=== PATIENT | female | born 1950 | race Caucasian/White ===

== ENCOUNTER → 2020-08-03 | Outpatient (CLI) | payer MEDICARE, BC ==
[~2020-08-03] MED LIST: ASCO100T4 PO; ASPI-630 PO; BUPIVACAINE MPF 0.25% 30 ML VIAL. ONE; CALC500T54 PO; FEXO180T81 PO; IOHEXOL 180 MG/ML 10 ML VIAL. ONE; LACT1CAP19 PO; LEVO175T5 PO; LOSA-73 PO; MULT1CAP15 PO; OMEG1CAP43 PO; RABE20TA26 PO; TEMA30CA PO; Vitamin D3; methylPREDNISolone ACETATE 80 MG/ML VIAL. ONE
--- NOTE | 2020-08-03 13:26 | PDOC2 ---
INITIAL PAIN CONSULT DATE OF SERVICE: DOS: DATE: 08/03/20 TIME: 13:17 CHIEF COMPLAINT: Chief Complaint: Low back and left lower extremity pain HISTORY OF PRESENT ILLNESS: 70-year-old female presents with history of pain for about 3 months without any specific injury or accident that she is aware of, with pain in the low back left side of the posterior hip into the posterior thigh and calf and into the heel on the left side as well as the plantar surface of the foot. Patient reports it is worse with walking ,standing ,changing positions from standing to sitting and vice versa. Patient describes pain is constant sharp stabbing at times dull and aching in the low back rating the posterior gluteus posterior thigh and some in the heel of the foot on the left side as well. Patient reports awakens her from sleep about 2-3 times a night. Patient reports it does not affect her bowel or bladder control without any incontinence but does affect her ability to walk occasionally but not use any assistive devices to ambulate. Patient is tried ph ysical therapy chiropractic treatment with exercise which she is doing currently as well as acupuncture and dry needling all which were temporarily helpful but not long-term. Patient taking ibuprofen which helps to some extent as well but only mildly. Patient rates her disability rating 0-10 10 being the worst as a 7 with family home responsibilities for with recreation 5 with social activity 6 with occupation and sexual behavior 3 with self-care and life support activities. Patient reports no loss of motor function but significant fatigability of the left lower extremity with walking even with standing for more than about 10 to 15 minutes. PAST MEDICAL HISTORY: PMH: Hearing loss, hypertension, arthritis, irritable bowel syndrome, gastroesophageal reflux, recurrent urinary tract infections. PREVIOUS SURGERIES: Past Surgical Hx: Bladder sling, tonsillectomy adenoidectomy, ORIF humerus, bilateral knee replacement right side April 13 and left side July 16, 2020, tubal ligation FAMILY HISTORY: Family Hx: Cancer, heart disease, strokes SOCIAL HISTORY: Social Hx: Patient drinks 1 glass of wine only very rarely maybe once a month does not smoke does not use any illegal illicit or recreational drugs is lives with her spouse lives locally in [facility] reports she is currently retired. REVIEW OF SYSTEMS: ROS: Positive for those items mentioned in history of present illness, all systems are reviewed, otherwise negative, is complete full and well-documented on [facility]'s chart PHYSICAL EXAM: VS: Blood pressure is 146/84 pulse 69 respiration 16 temperature 97.9 F height is 5 feet 4 inches weight 217 pounds PE: PHYSICAL EXAMINATION: GENERAL: The patient is awake, alert, oriented, appropriate, very pleasant demeanor HEENT: Shows normocephalic, atraumatic. Extraocular movements are intact and symmetrical. Oral cavity: Mucous membranes moist and pink. NECK: Shows anterior throat supple without palpable lymphadenopathy noted. Swallow reflex symmetrical. CHEST: Shows normal on inspection. Breath sounds are clear bilaterally, no rales rhonchi or wheezes auscultated. HEART: Shows S1, S2 clear. No murmurs auscultated. ABDOMEN: Soft, nontender, nondistended. No palpable organomegaly is noted. No rebound or guarding demonstrated. BACK: Shows spine grossly in the midline. Normal-appearing cervical lordotic curvature. There is slightly increased thoracic kyphosis, some minor flattening of the lumbar lordotic curvature. Lumbar paraspinous muscles show symmetrical on inspection, on palpation shows some moderate tenderness diffusely throughout the upper, middle and lower distribution of the paraspinous muscles bilaterally, but without specific trigger points, without radiation of pain. The patient has good rotational motion of the lumbar spine, both laterally as well as extension and flexion without significant difficulty. No tenderness over the spinous processes, or sacrum. Sacroiliac regions show significant tenderness with palpation over the left posterior superior iliac spine but not the right also significant tenderness with palpation over the sacroiliac joint itself on the left side with patient withdrawing from the examining hand secondary to significant tenderness over this region. EXTREMITIES: Lower extremities show deep tendon reflexes 2+ in the patellar and tendo calcaneus tendons. Motor exam is 5 on a scale of 5 with right dorsiflexion, extension, quadriceps and hamstring flexion and 5/5 on the left. Peripheral pulses are 1+ posterior tibial. No peripheral edema is noted bilaterally. Lower extremities are warm and dry to touch, equal in color and appearance. Straight leg raise noted to be negative on the right; left side is mildly positive at about 45 degrees decreased with knee flexion. Gaenslen's maneuvers shows positive on the left side with external rotation and posterior displacement of the lower leg right side is negative. Joe's maneuvers are negative bilaterally. The patient is able to stand, stand on her toes without significant difficulty or loss of balance walks with a normal-appearing gait does not appear to favor the right or left lower extremity significantly not using any assistive device such as canes or walkers to ambulate. SKIN: Shows warm and dry, good turgor. No edema. No sores, rashes or bruising throughout. IMPRESSION: Impression: 70-year-old female with approximate 3-month history increasing pain low back left hip and lower extremity Hypertension Arthritis Hearing loss Recent bilateral knee replacements Plan: Options were discussed with the patient patient spouse who accompanied her visit today, we will proceed with a left sacroiliac joint injection with fluoroscopic guidance today also will order MRI scan of the lumbar spine to better differentiate the radicular pattern pain she has in the left leg. Risks were discussed including but not limited to bleeding infection possibility of intravascular injection sequelae spread of local anesthetic and numbness side effects of steroid medication exposure fluoroscopy and poor results rating pain control. Patient understands wished to proceed. Patient return to clinic in possibly 2 weeks for follow-up. Under sterile prep and drape using C-arm fluoroscopic guidance, left sacroiliac joint injected with 22-gauge Quincke needle with stylette, using 3 cc 0.25% bupivacaine +80 mg Depo-Medrol +2 cc contrast after negative aspiration. Condition at discharge is stable, patient tolerated procedure well and had no complications. NICOLE GALLARDO MD Aug 03, 2020 13:26
== END | disposition home or self-care (01) ==
LOC: PNCL 10:43
PROVIDERS: ATTEND Anesthesiology
DX: M54.5 Low back pain (principal); M79.662 Pain in left lower leg; I10 Essential (primary) hypertension; M19.90 Unspecified osteoarthritis, unspecified site; K21.9 Gastro-esophageal reflux disease without esophagitis; K58.8 Other irritable bowel syndrome; H91.8X9 Other specified hearing loss, unspecified ear; Z87.440 Personal history of urinary (tract) infections; Z79.82 Long term (current) use of aspirin; Z79.899 Other long term (current) drug therapy; Z98.890 Other specified postprocedural states; Z96.653 Presence of artificial knee joint, bilateral; Z98.51 Tubal ligation status
CPT/HCPCS: 27096; J1040; J3490; Q9965; G0260

== ENCOUNTER → 2020-08-07 | Outpatient (CLI) | payer MEDICARE, BC ==
[~2020-08-07] MED LIST changes: +AMLO-187 PO; -BUPIVACAINE MPF 0.25% 30 ML VIAL. ONE; -IOHEXOL 180 MG/ML 10 ML VIAL. ONE; -methylPREDNISolone ACETATE 80 MG/ML VIAL. ONE
--- NOTE | 2020-08-07 12:45 | KCIC ---
MRI Lumbar Spine without contrast History: Lumbar radiculopathy, progressive low back pain into the left hip in recent months Technique: Multiplanar, multi sequential noncontrast MR imaging was performed of the lumbar spine. Comparison: None Findings: There is edema of the sacrum bilaterally. Lumbar vertebral body stature is maintained. There is very mild grade 1 anterior spondylolisthesis L4-5 and L5-S1. It is difficult to confirm integrity of the right L5 pars interarticularis on this exam, believed to be intact on the left. There is moderate L5-S1 degenerative disc disease, minimally at L4-5 and L2-3, mild disc desiccation L3-4 and L1-2. There are anterior annular tears L1-L2 through L3-4. Conus terminates at L1. There is mild dextroscoliosis centered near L3. There is very mild right lateral subluxation L4 relative to L5. T12-L1: There is negligible posterior protrusion. Neural foramina and spinal canal are adequate. L1-L2: There is very minimal disc osteophyte complex, also very shallow protrusion in the right lateral recess. Spinal canal and neural foramina are adequate. L2-L3: There is very minimal disc osteophyte complex and bulge. There is mild facet degenerative change and buckling of the ligamentum flavum. Spinal canal and neural foramina are adequate. L3-L4: There is mild facet hypertrophic change and buckling of the ligamentum flavum. There is negligible disc osteophyte complex. Spinal canal and neural foramina are adequate. L4-L5: There is moderate bilateral facet hypertrophic change and buckling of the ligamentum flavum fluid in the facet articulations bilaterally. There is moderate left and mild right lateral recess stenosis, mild narrowing of the central canal. There is mild narrowing of the right neural foramen primarily from posteriorly by facet, left neural foramen adequate. L5-S1: There is mild to moderate left facet degenerative change, minimal fluid in the left facet articulation. There is minimal disc osteophyte complex, very shallow superimposed protrusion without significant impingement of the descending S1 nerve roots. Spinal canal is overall adequate. Left neural foramen is adequate. There is mild narrowing of the right neural foramen, right posterolateral disc osteophyte complex also contacting the extraforaminal right L5 nerve root. Impression: 1. Bilateral sacral edema is likely sequela of recent insufficiency fractures. 2. There is moderate L5-S1 degenerative disc disease, minimally at other levels. There is mild spondylosis. There is moderate left and mild right lateral recess stenosis at L4-5. There is mild right neural foramina compromise at L4-5 and L5-S1, also contact of the extraforaminal right L5 nerve root at L5-S1 by disc osteophyte complex. 3. There is mild lumbar dextroscoliosis. There is mild grade 1 anterior spondylolisthesis at L4-5 and L5-S1, multilevel lumbar facet degenerative change. Electronically signed by: Francisco Trevizo MD (08/07/2020 12:41 PM) [id number]
== END ==
LOC: KCIC MRI 10:17
PROVIDERS: ATTEND Anesthesiology
DX: M54.16 Radiculopathy, lumbar region (principal); M54.5 Low back pain; M25.552 Pain in left hip; M51.37 Other intervertebral disc degeneration, lumbosacral region; M48.061 Spinal stenosis, lumbar region without neurogenic claudication; M41.86 Other forms of scoliosis, lumbar region
CPT/HCPCS: 72148

== ENCOUNTER → 2020-08-17 | Outpatient (CLI) | payer MEDICARE, BC ==
[~2020-08-17] MED LIST changes: -AMLO-187 PO; +AMLO10TA8 PO
--- NOTE | 2020-08-17 10:27 | PDOC ---
Progress Note - Pain Clinic Date of Service: DOS: DATE: 08/17/20 TIME: 10:23 Diagnosis: Dx: Left sacroiliitis Lumbar radiculopathy with lumbar degenerative disc disease History or Present Illness: HPI: 70-year-old female returns follow-up status post left sacroiliac joint injection x1. Patient reports about 80% improvement and still doing better but not quite 80% now about 70% after her injection on August 03, 2020 patient reports is been increase activity degrees and comfort travel with greater ease walking greater distances and comfort sleeping better at night patient reports her pain is beginning to return on the left side also radiating to the left lower extremity in the posterior gluteus and thigh and occasionally in the left calf but only very occasionally patient reports the pain is a 3 on scale 10 is worse over the past week 3 on average 3 days least is a 3 today patient scribes pain is sharp and aching shooting in the left leg at times mostly in the left posterior hip and gluteus. Patient reports he did have some redness and bumps on the skin after her last injection and her blood pressure was elevated 260/93 after the injection as well she is somewhat apprehensive about having any other procedures at this time. Patient reports otherwise no new motor or sensory deficits no new changes Physical Exam: VS: Blood pressure is 121/77 pulse 74 respirations 20 temperature 98.0 F height is 216 pounds PE: PHYSICAL EXAMINATION: GENERAL: The patient is awake, alert, oriented, appropriate, very pleasant demeanor HEENT: Shows normocephalic, atraumatic. Extraocular movements are intact and symmetrical. NECK: Shows anterior throat supple without palpable lymphadenopathy noted. Swallow reflex symmetrical. CHEST: Shows normal on inspection. Breath sounds are clear bilaterally. HEART: Shows S1, S2 clear. No murmurs auscultated. ABDOMEN: Soft, nontender, nondistended. No palpable organomegaly is noted. No rebound or guarding demonstrated. BACK: Shows spine grossly in the midline. Normal-appearing cervical lordotic curvature. There is slightly increased thoracic kyphosis, some minor flattening of the lumbar lordotic curvature, patient shows good rotation motion lumbar spine both laterally as well as extension flexion without significant increase in pain. Lumbar paraspinous muscles show symmetrical on inspection, on palpation shows some moderate tenderness diffusely throughout the upper, middle and lower distribution of the paraspinous muscles bilaterally without specific trigger points, without radiation of pain. The patient has good rotational motion of the lumbar spine, both laterally as well as extension and flexion without significant difficulty. No tenderness over the spinous processes, sacrum or sacroiliac regions. EXTREMITIES: Lower extremities show deep tendon reflexes 2+ in the patellar and tendo calcaneus tendons. Motor exam is 5 on a scale of 5 with right dorsiflexion, extension, quadriceps and hamstring flexion and 5/5 on the left. Peripheral pulses are 1+ posterior tibial. No peripheral edema is noted bilaterally. Lower extremities are warm and dry to touch, equal in color and appearance. Patient has mild tenderness with palpation over the posterior superior iliac spine on the left but not the right also in the left sacroiliac region but only very mild pain. Gaenslen's maneuver is negative bilaterally. SKIN: Shows warm and dry, good turgor. No edema. No sores, rashes or bruising throughout. Procedure: Procedure: Options discussed with the patient. Patients chart was reviewed,her current medication regimen updated current review of systems updated today as well. We will wait on any further injections at this time as patient is somewhat apprehensive about the blood pressure response she had after her last injection. Patient will return to clinic in approximate 1 month as scheduled or sooner if necessary the pain returns. We also discussed patient's MRI scan report showing some narrowing at the L4-5 and L5-S1 levels in the lumbar spine. Patient will return to clinic in approximate 1 month and will reassess her pain situation at that time. Medication Injected: Med Injected: None Condition at Discharge: Condition at Discharge: Condition at discharge is stable NICOLE GALLARDO MD Aug 17, 2020 10:27
== END | disposition home or self-care (01) ==
LOC: PNCL 09:29
PROVIDERS: ATTEND Anesthesiology
DX: M46.1 Sacroiliitis, not elsewhere classified (principal); M51.16 Intervertebral disc disorders with radiculopathy, lumbar region; I10 Essential (primary) hypertension; K21.9 Gastro-esophageal reflux disease without esophagitis; Z98.51 Tubal ligation status; Z79.899 Other long term (current) drug therapy
CPT/HCPCS: G0463